=== PATIENT | female | born 1990 | race Caucasian/White ===

== ENCOUNTER 2022-04-27 10:09 | Outpatient (CLI) | payer OTHER, SELFPAY ==
[2022-04-27 14:32] LABS: PCR FLU A POSITIVE PCR FLU A (Negative); PCR FLU B Negative PCR FLU B (Negative); PCR RSV Negative PCR RSV (Negative)
[2022-04-27 14:44] LABS: SARS PCR* Negative SARS-CoV-2 (Negative)
== END 2022-04-27 10:10 | disposition home or self-care (01) ==
LOC: KYNREF 10:09
PROVIDERS: Visit Provider Nurse Practitioner Family
DX: Z20.822 Contact with and (suspected) exposure to COVID-19 (principal); R50.9 Fever, unspecified
CPT/HCPCS: 87502; 87634; 87635